=== PATIENT | female | born 1985 | race Caucasian/White ===

== ENCOUNTER 2022-05-04 00:48 | Day surgery (SDC) | payer OTHER, BC, SELFPAY ==
--- NOTE | 2022-04-26 10:13 | PC.NURSE ---
Report to the Outpatient Waiting Room, entrance under the green pavilion located off [facility], at time 1115 on date 05/04/22. OR Time: 1315. - You and your visitor will be asked to self-screen and do not enter if you have any COVID symptoms. - Only one visitor and NO children visitors are allowed at this time. - The patient visitor is requested to leave or wait in car when not with patient due to restrictions. - A mask is required within the hospital. Patients may have clear liquids (water, carbonated beverages, clear teas, apple juice) until 3 hours prior to surgery with a maximum of 20 ounces. - No food from midnight until time of surgery Take the following medications with a SIP of water the morning of surgery: N/A Medications to discontinue per physician: N/A Date to take last dose: N/A Please no make-up, nail setswana, hairspray, perfume, deodorant, or body powder the day of surgery. No jewelry (including any body piercings) or valuables the day of surgery, leave them at home. Please take a shower or bath the night before, or the morning of, surgery with an antibacterial soap. Wear comfortable, loose fitting clothing. - Jewelry must be removed prior to entering the operating room. Rings and piercings that are not removed may be cut off. - The hospital will not accept responsibility for valuables. - Please leave all valuables, including medications, at home the day of surgery. If you are going home after surgery, a licensed flatbed truck driver must drive you home. - NO public transportation without another adult. - We recommend that an adult stay with you for 24 hours following discharge. - We also recommend that you do not drive, make important decision, drink alcoholic beverages, or take any drugs that were not prescribed by your health care provider for at least 24 hours after your discharge time. Follow any additional instructions given to you from your surgeon. If you or anyone in your household have experienced Covid symptoms in the past week, please notify your surgeon or the nurse liaison at the phone number below for possible testing. Telephone instructions given to PT - JEFFERY PONCE and asked if any additional questions and then verbalized understanding. Patient advised to call surgeon office or pre surgery nurse liaison [phone] if any additional questions.
[2022-05-04] VITALS (7 sets, daily range): BP systolic 95–120; BP diastolic 53–77; PULSE 50–70; RESP 12–17; TEMP 36.7–37; O2SAT 99–100
--- NOTE | 2022-05-04 13:28 | SUR.PREOP ---
upon arrival today no insurance verification ,delay in pt arrival to pre op
[2022-05-04] MEDS: ACETAMINOPHEN 500 MG TABLET 1000 MG PO (13:37)
[2022-05-04] MEDS: GABAPENTIN 300 MG CAPSULE PO (13:37)
--- NOTE | 2022-05-04 13:45 | P.PNAN_ITS ---
Anes - Initial Pre Proc Eval Procedure: Operation Date: 05/04/22 13:15 Proposed Procedures p Diagnostic Laparoscopy, Bilateral Salpingectomy - Cecille Frankel DO Date/Time: 05/04/22 13:45 Surgeon: Cecille Frankel DO Pre Op Diagnosis: desires sterility Patient Data Age: 36 Gender: F Height: 1.65 m Weight: 54.43 kg Allergies Allergy/AdvReac Type Severity Reaction Status Date / Time No Known Allergies Allergy Verified 05/04/22 13:36 Home Medications Medication Instructions Recorded Confirmed Type No Home Medications 04/26/22 05/04/22 History Patient hx anesthesia problems: none Family hx anesthesia problems: none Results Review: All pre-operative results and documents have been reviewed as part of the pre- operative evaluation. [facility] Social History Social History Smoking packs per day: 0.5 Smoking cigarettes per day: 10.0 Years smoked: 10 Smoking pack-years: 5.00 Smoking status: Current every day smoker Tobacco type: cigarettes Alcohol intake: current Alcohol use details: VERY SELDOM Substance use: never Substance use type: does not use Living arrangements: with family Spiritual care concerns: No Anes - Eval Final PreProcedure Day of Procedure 05/04/22 13:45 Patient weight: normal Heart: regular rate and rhythm Lungs: clear to auscultation Airway: Mallampati scale class II Neurological: alert and oriented Last oral intake: >/= 8 hours ASA classification: II Emergent: no Anesthetic plan: proceed Anesthesia type and monitoring: general ETT and standard monitoring Results Review: All pre-operative results and documents have been reviewed as part of the pre- operative evaluation. Informed Consent: The patient's anesthetic plan and its attendant risks and benefits were discussed with the patient/family/POA. Questions were solicited and answers provided to the satisfaction of the patient/family/POA.
[2022-05-04] MEDS: LACTATED RINGERS 1,000 ML 30 ML IV CONT ×2 (13:50→15:50)
--- NOTE | 2022-05-04 13:50 | P.PNAN_ITS ---
Anes - Initial Pre Proc Eval Procedure: Operation Date: 05/04/22 13:15 Proposed Procedures p Diagnostic Laparoscopy, Bilateral Salpingectomy - Cecille Frankel DO Date/Time: 05/04/22 13:50 Surgeon: Cecille Frankel DO Pre Op Diagnosis: desires sterility Patient Data Age: 36 Gender: F Height: 1.65 m Weight: 54.43 kg Allergies Allergy/AdvReac Type Severity Reaction Status Date / Time No Known Allergies Allergy Verified 05/04/22 13:36 Home Medications Medication Instructions Recorded Confirmed Type No Home Medications 04/26/22 05/04/22 History Patient hx anesthesia problems: none Family hx anesthesia problems: none Results Review: All pre-operative results and documents have been reviewed as part of the pre- operative evaluation. [facility] Social History Social History Smoking packs per day: 0.5 Smoking cigarettes per day: 10.0 Years smoked: 10 Smoking pack-years: 5.00 Smoking status: Current every day smoker Tobacco type: cigarettes Alcohol intake: current Alcohol use details: VERY SELDOM Substance use: never Substance use type: does not use Living arrangements: with family Spiritual care concerns: No Anes - Eval Final PreProcedure Day of Procedure 05/04/22 13:50 Results Review: All pre-operative results and documents have been reviewed as part of the pre- operative evaluation. Informed Consent: The patient's anesthetic plan and its attendant risks and benefits were discussed with the patient/family/POA. Questions were solicited and answers provided to the satisfaction of the patient/family/POA.
--- NOTE | 2022-05-04 14:22 | PM.IMHP ---
H&P: HPI History of Present Illness Date/Time: 05/04/22 14:22 Chief Complaint: I'm here to have my tubes removed Narrative: Patient presents with undesired fertility requesting permanent sterilization. Review of Systems Review of Systems: All systems reviewed & are unremarkable except as noted in HPI and below PMFSH Social History Social History Smoking packs per day: 0.5 Smoking cigarettes per day: 10.0 Years smoked: 10 Smoking pack-years: 5.00 Smoking status: Current every day smoker Tobacco type: cigarettes Alcohol intake: current Alcohol use details: VERY SELDOM Substance use: never Substance use type: does not use Living arrangements: with family Spiritual care concerns: No Meds Home Medications and Allergies Home Medications Medication Instructions Recorded Confirmed Type No Home Medications 04/26/22 05/04/22 History Allergies Allergy/AdvReac Type Severity Reaction Status Date / Time No Known Allergies Allergy Verified 05/04/22 13:36 Vital Signs Vital Signs - 24 hr 05/04/22 13:34 Temperature 37.0 C Pulse Rate 70 Respiratory Rate 16 Blood Pressure 101/58 L Pulse Oximetry 99 Oxygen Delivery Room Air Exam Const: General: comfortable and no acute distress Eyes: General: appearance normal, both eyes and all related structures Resp: Effort & Inspection: normal respiratory effort Auscultation: clear to auscultation bilaterally Cardio: Rate: regular rate Rhythm: regular rhythm GI: GI Palp: Yes Soft to palpation Auscultation: normal bowel sounds Skin: General skin exam: normal color and no rashes or lesions noted Neuro: General: gait normal Speech: normal speech Motor exam (neuro): 5/5 motor strength present throughout Psych: Mental Status: mental status grossly normal Affect: normal affect Assessment and Plan Assessment and plan (1) Sterilization: Code(s): Z30.2 - Encounter for sterilization Status: Acute Plan Diagnostic laparoscopy, bilateral salpingectomy
--- NOTE | 2022-05-04 14:23 | WPDHPUPDATE1 ---
History and Physical Update Update Date/Time: 05/04/22 14:23 History and Physical has been reviewed, including an updated exam of the patient. There are NO changes in the patient's condition. Risks, benefits, and alternatives have been discussed and questions answered. Patient agrees to proceed with procedure.
[2022-05-04] MEDS: BUPIVACAINE HCL 0.25% PF 30 ML VIAL 10 ML INFILTRATE (14:56)
[2022-05-04] MEDS: BUPIVACAINE HCL 0.25% PF 30 ML VIAL INFILTRATE (15:40)
--- NOTE | 2022-05-04 15:42 | P.OP_ITS ---
Procedure Note - Detailed Date of Procedure 05/04/22 Pre-op Diagnosis desires sterility Post-op Diagnosis Same Procedure Performed Diagnostic laparoscopy, bilateral salpingectomy Surgeon Cecille Frankel DO [employer] Anesthesia General Indications Undesired fertility Findings Normal appearing vulva and vaginal canal. Large cervix. Internally, the bowel appeared grossly normal. The left ovary was normal, the left tube was adhered in an S shaped pattern up to the section scar. The right tube was normal, the right ovary contained a simple physiological cyst. There was moderate scarring of the bladder flap. Description of Procedure The patient was taken to the operating room where she was placed under general anesthesia. She was prepped and draped in the normal sterile fashion in the dorsal lithotomy position. No preoperative antibiotics were indicated. A time- out was performed. A speculum was placed in the vagina and the cervix was visualized. The anterior lip was grasped with a single-tooth tenaculum. A Kroner uterine manipulator was placed. A Humphries catheter was placed. Gloves were changed and attention was then turned to the abdomen. The skin below the umbilicus was grasped with 2 penetrating towel clamps and the area was injected with local. Small incision was made and a Veress needle was introduced. The saline water drop test was performed to confirm intraperitoneal placement. The abdomen was brought up to a filling pressure of 15 mmHg. The Veress needle was then replaced with a 5 mm trocar which was introduced with the camera. Survey of the abdomen revealed no evidence of bowel or vascular injury upon entry. The patient was then placed in steep Trendelenburg position. Additional trocar sites in the right and left lower quadrants were identified, injected and incised. Additional 5 mm trocars were introduced under direct visualization. Right tube was elevated cauterized and transected off using LigaSure. It was then passed off through the bilingual legal assistant port the left tube was freed from its adhesion to the section scar which was filmy and thin. It was then cauterized and transected off and removed through the bilingual legal assistant port. The surgical pedicles were reinspected and found to be hemostatic. The instruments were removed from the abdomen and the CO2 gas was allowed to escape. The trocars removed. The skin incisions were closed with 4-0 Monocryl in a subcuticular fashion. The uterine manipulator and Humphries catheter were removed. Patient was taken to the recovery room in stable condition. All instrument and sponge counts were correct at the conclusion of the procedure. Estimated Blood Loss 5 IV Fluids 1,000 Pathology Yes Complications No immediate complications Condition Stable Disposition PACU
[2022-05-04] MEDS: fentaNYL CITRATE INJ (*CRX) 100 MCG/2 ML VIAL 25 MCG IV PUSH ×4 (16:18→16:28)
[2022-05-04] MEDS: ONDANSETRON INJ 4 MG/2 ML VIAL IV PUSH (17:02)
== END 2022-05-04 17:42 | disposition home or self-care (01) ==
PROVIDERS: Visit Provider Obstetrics & Gynecology Gynecologic Oncology
PROC: (CPT 49320; principal; 2022-05-04 13:15)
DX: Z30.2 Encounter for sterilization (principal); N83.8 Other noninflammatory disorders of ovary, fallopian tube and broad ligament; F17.210 Nicotine dependence, cigarettes, uncomplicated
CPT/HCPCS: 58661; 88302; A9270; J2001; J2250; J2405; J2704; J3010; J7120